=== PATIENT | female | born 2000 | race Caucasian/White ===

== ENCOUNTER 2022-09-06 21:02 | Emergency (ER) | payer OTHER ==
[2022-09-06 21:10] VITALS: BP 120/81; PULSE 64; RESP 16; TEMP 97.7; BMI 26.1
[2022-09-06] MEDS ORDERED: TETRACAINE 0.5% HCL 0.6ML DROPPER.BOTTLE OD ONE (22:23)
[2022-09-06] MEDS ORDERED: TETRACAINE 0.5% OPHTH SOLN 2 ML BOTTLE ONE (22:36)
[2022-09-06] MEDS ORDERED: FLUORESCEIN NA 1 EA STRIP ONE (22:38)
== END 2022-09-06 23:00 | disposition home or self-care (01) ==
LOC: JERFT 21:02 → JER 21:02 → JERFT 23:00
DX: S05.01XA Injury of conjunctiva and corneal abrasion without foreign body, right eye, initial encounter (principal); W45.8XXA Other foreign body or object entering through skin, initial encounter
CPT/HCPCS: 99285-25